=== PATIENT | female | born 1970 | race Caucasian/White ===

== ENCOUNTER 2019-05-02 21:52 | Emergency (ER) | payer BC, OTHER ==
[2019-05-02] MEDS ORDERED: Succinylcholine 200 MG/10 ML MDV IV ONE (21:53)
[2019-05-02] MEDS ORDERED: Propofol 200 MG/20 ML SDV IV ONE (21:53)
[2019-05-02] MEDS ORDERED: Sodium Chloride 0.9% 10 ML Syringe FLUSH PRN (22:12)
[2019-05-02] MEDS ORDERED: Morphine 2 MG/ML Syringe IVPUSH ONE (22:42)
[2019-05-02] MEDS ORDERED: Ondansetron 4 MG/2 ML SDV IVPUSH ONE (22:42)
[2019-05-02] MEDS ORDERED: Morphine 2 MG/ML Syringe IM ONE (22:44)
[2019-05-02] MEDS ORDERED: Ondansetron 8 MG Tab.DIS PO ONE (22:44)
[2019-05-02] MEDS ORDERED: Phytonadione 10 MG in Sodium Chloride 0.9% 50 ML IV ONE (23:20)
--- NOTE | 2019-05-02 23:39 | EDM.PDOC ---
ED HPI GENERAL MEDICAL PROBLEM - General Chief Complaint: Headache Stated Complaint: fall Time Seen by Provider: 05/02/19 21:55 Source of Information: Reports: Patient, Family History Limitations: Reports: No Limitations - History of Present Illness INITIAL COMMENTS - FREE TEXT/NARRATIVE: Patient presented o the ED because of headache,altered LOC and confusion. She had a brain tumor resection 6 days ago and was discharged to home today. She got out of the car and was feeling weak and dizzy and fell on her buttock. She didn't sustain and physical injury but c/o 8/10 headche,nausea,and according to her she was confused. Past Medical History Neurological History: Reports: Headaches, Chronic, Other (See Below) (Brain Ca post resection) Endocrine/Metabolic History: Reports: Diabetes, Type II ED ROS GENERAL - Review of Systems Review Of Systems: See Below Constitutional: Denies: Fever HEENT: Reports: No Symptoms Respiratory: Reports: No Symptoms Cardiovascular: Reports: No Symptoms Endocrine: Reports: No Symptoms GI/Abdominal: Reports: Nausea. Denies: Vomiting Musculoskeletal: Reports: No Symptoms, Neck Pain Skin: Reports: No Symptoms Neurological: Reports: Confusion, Headache Psychiatric: Reports: No Symptoms ED EXAM, GENERAL - Physical Exam Exam: See Below Exam Limited By: No Limitations General Appearance: Alert Eye Exam: Bilateral Eye: Other (rt pupil is dilated5-7 mm lrgt 2-3 mm) Nose: Normal Inspection, Normal Mucosa Throat/Mouth: Normal Inspection, Normal Lips Head: Atraumatic, Normocephalic Neck: Normal Inspection, Supple, Non-Tender Respiratory/Chest: No Respiratory Distress, Lungs Clear, Normal Breath Sounds Cardiovascular: Normal Peripheral Pulses, Regular Rate, Rhythm, No Edema, No Gallop GI/Abdominal: Normal Bowel Sounds, Soft, Non-Tender, No Organomegaly Back Exam: Normal Inspection, Full Range of Motion Extremities: Normal Inspection, Normal Range of Motion, Non-Tender Neurological: Other (decrese sensation left,left hemiaresis) Skin Exam: Warm Course - Vital Signs Text/Narrative:: lbs/ekg/head ct was discussed with patient her and verbalized full understanding vitamin k 10 mg IM ffp 2 u iv mannitol 1360 gm iv x1 keppra 500 mg ivx1 zofran 8 mg odt neurosurgery consult was done with Dr Linares at [facility] who agreed with the above plan patient will be transported by air and patient and her agreed - Orders/Labs/Meds Orders: Active Orders 24 hr Category Date Time Status EKG Documentation Completion [RC] ASDIRECTED Care 05/02/19 22:13 Active Chest 1V Frontal [CR] Stat Exams 05/02/19 22:12 Ordered Head wo Cont [CT] Stat Exams 05/02/19 22:14 Taken FRESH FROZEN PLASMA [BBK] Routine Lab 05/02/19 23:05 Received PATIENT RETYPE [BBK] Routine Lab 05/02/19 23:05 Results TYPE AND SCREEN [BBK] Routine Lab 05/02/19 23:05 Received UA W/MICROSCOPIC [URIN] Stat Lab 05/02/19 22:12 Ordered Mannitol [Mannitol 20%] Med 05/02/19 23:54 Ordered 136 gm in 680 ml IV ONETIME Sodium Chloride 0.9% [Saline Flush] Med 05/02/19 22:12 Active 10 ml FLUSH ASDIRECTED PRN levETIRAcetam [Keppra] 500 mg Med 05/02/19 23:44 Ordered Sodium Chloride 0.9% [Normal Saline] 100 ml IV ONETIME Saline Lock Insert [OM.PC] Routine Oth 05/02/19 22:12 Ordered EKG 12 Lead [EK] Routine Ther 05/02/19 22:12 Ordered Medication Orders Levetiracetam 500 mg/ Sodium (Chloride) 105 mls @ 400 mls/hr IV ONETIME ONE Stop: 05/02/19 23:58 Mannitol (Mannitol 20%) 136 gm in 680 mls @ 680 mls/hr 1 gm/kg (136 gm) IV ONETIME ONE Stop: 05/03/19 00:53 Sodium Chloride (Saline Flush) 10 ml FLUSH ASDIRECTED PRN PRN Reason: Keep Vein Open Labs: Laboratory Tests 05/02/19 05/02/19 05/02/19 Range/Units 23:05 23:05 23:05 WBC 25.3 H (4.5-12.0) X10-3/uL RBC 5.03 (3.23-5.20) x10(6)uL Hgb 15.0 (11.5-15.5) g/dL Hct 46.1 (30.0-51.3) % MCV 91.7 (80-96) fL MCH 29.8 (27.7-33.6) pg MCHC 32.5 (32.2-35.4) g/dL RDW 12.8 (11.5-15.5) % Plt Count 288 (125-369) X10(3)uL MPV 9.2 (7.4-10.4) fL Add Manual Diff Yes Neutrophils % (Manual) 87 H (46-82) % Lymphocytes % (Manual) 7 L (13-37) % Monocytes % (Manual) 6 (4-12) % PT 17.5 H (9.0-11.1) sec INR 1.81 H (1.00-1.24) Sodium 135 (135-145) mmol/L Potassium 3.8 (3.5-5.3) mmol/L Chloride 97 L (100-110) mmol/L Carbon Dioxide 25 (21-32) mmol/L BUN 28 H (7-18) mg/dL Creatinine 1.1 H (0.55-1.02) mg/dL Est Cr Clr Drug Dosing TNP Estimated GFR (MDRD) 53 L (>60) BUN/Creatinine Ratio 25.5 H (9-20) Glucose 310 H (80-116) mg/dL Calcium 8.9 (8.6-10.2) mg/dL Total Bilirubin 1.4 H (0.1-1.3) mg/dL AST 17 (5-25) IU/L ALT 27 (12-36) U/L Alkaline Phosphatase 89 (56-112) IU/L Total Protein 7.7 (6.0-8.0) g/dL Albumin 3.4 L (3.5-5.2) g/dL Globulin 4.3 g/dL Albumin/Globulin Ratio 0.8 Blood Type 05/02/19 Range/Units 23:05 WBC (4.5-12.0) X10-3/uL RBC (3.23-5.20) x10(6)uL Hgb (11.5-15.5) g/dL Hct (30.0-51.3) % MCV (80-96) fL MCH (27.7-33.6) pg MCHC (32.2-35.4) g/dL RDW (11.5-15.5) % Plt Count (125-369) X10(3)uL MPV (7.4-10.4) fL Add Manual Diff Neutrophils % (Manual) (46-82) % Lymphocytes % (Manual) (13-37) % Monocytes % (Manual) (4-12) % PT (9.0-11.1) sec INR (1.00-1.24) Sodium (135-145) mmol/L Potassium (3.5-5.3) mmol/L Chloride (100-110) mmol/L Carbon Dioxide (21-32) mmol/L BUN (7-18) mg/dL Creatinine (0.55-1.02) mg/dL Est Cr Clr Drug Dosing Estimated GFR (MDRD) (>60) BUN/Creatinine Ratio (9-20) Glucose (80-116) mg/dL Calcium (8.6-10.2) mg/dL Total Bilirubin (0.1-1.3) mg/dL AST (5-25) IU/L ALT (12-36) U/L Alkaline Phosphatase (56-112) IU/L Total Protein (6.0-8.0) g/dL Albumin (3.5-5.2) g/dL Globulin g/dL Albumin/Globulin Ratio Blood Type A POSITIVE Meds: Medications Generic Name Dose Route Start Last Admin Trade Name Freq PRN Reason Stop Dose Admin Levetiracetam 500 mg/ Sodium 105 mls @ 400 mls/hr 05/02/19 23:44 Chloride IV 05/02/19 23:58 ONETIME ONE Mannitol 136 gm in 680 mls @ 680 mls/hr 05/02/19 23:54 Mannitol 20% 1 gm/kg (136 gm) 05/03/19 00:53 IV ONETIME ONE Sodium Chloride 10 ml 05/02/19 22:12 Saline Flush FLUSH ASDIRECTED PRN Keep Vein Open Discontinued Medications Generic Name Dose Route Start Last Admin Trade Name Freq PRN Reason Stop Dose Admin Phytonadione 10 mg/ Sodium 51 mls @ 100 mls/hr 05/02/19 23:20 05/02/19 23:31 Chloride IV 05/02/19 23:50 Not Given NOW ONE Morphine Sulfate 2 mg 05/02/19 22:42 Morphine IVPUSH 05/02/19 22:43 ONETIME ONE Morphine Sulfate 4 mg 05/02/19 22:44 05/02/19 23:31 Morphine IM 05/02/19 22:45 Not Given ONETIME ONE Ondansetron HCl 4 mg 05/02/19 22:42 Zofran IVPUSH 05/02/19 22:43 ONETIME ONE Ondansetron HCl 8 mg 05/02/19 22:44 05/02/19 22:47 Zofran Odt PO 05/02/19 22:45 8 mg ONETIME ONE Administration Phytonadione 10 mg 05/02/19 23:25 05/02/19 23:32 Aquamephyton IM 05/02/19 23:26 10 mg ONETIME ONE Administration Departure - Departure Time of Disposition: 00:05 Disposition: DC/Tfer to Acute Hospital 02 Condition: Good Clinical Impression: Intracerebral hemorrhage - Discharge Information Referrals: Jarrod Arvizu MD [Primary Care Provider] - Forms: ED Department Discharge Sepsis Event Note - Focused Exam Date Exam was Performed: 05/02/19 Time Exam was Performed: 23:58 - My Orders Last 24 Hours: My Active Orders 05/02/19 22:12 Chest 1V Frontal [CR] Stat UA W/MICROSCOPIC [URIN] Stat Sodium Chloride 0.9% [Saline Flush] 10 ml FLUSH ASDIRECTED PRN Saline Lock Insert [OM.PC] Routine EKG 12 Lead [EK] Routine 05/02/19 22:13 EKG Documentation Completion [RC] ASDIRECTED 05/02/19 22:14 Head wo Cont [CT] Stat 05/02/19 23:05 FRESH FROZEN PLASMA [BBK] Routine PATIENT RETYPE [BBK] Routine TYPE AND SCREEN [BBK] Routine 05/02/19 23:44 levETIRAcetam [Keppra] 500 mg Sodium Chloride 0.9% [Normal Saline] 100 ml IV ONETIME 05/02/19 23:54 Mannitol [Mannitol 20%] 136 gm in 680 ml IV ONETIME - Assessment/Plan Last 24 Hours: My Active Orders 05/02/19 22:12 Chest 1V Frontal [CR] Stat UA W/MICROSCOPIC [URIN] Stat Sodium Chloride 0.9% [Saline Flush] 10 ml FLUSH ASDIRECTED PRN Saline Lock Insert [OM.PC] Routine EKG 12 Lead [EK] Routine 05/02/19 22:13 EKG Documentation Completion [RC] ASDIRECTED 05/02/19 22:14 Head wo Cont [CT] Stat 05/02/19 23:05 FRESH FROZEN PLASMA [BBK] Routine PATIENT RETYPE [BBK] Routine TYPE AND SCREEN [BBK] Routine 05/02/19 23:44 levETIRAcetam [Keppra] 500 mg Sodium Chloride 0.9% [Normal Saline] 100 ml IV ONETIME 05/02/19 23:54 Mannitol [Mannitol 20%] 136 gm in 680 ml IV ONETIME
[2019-05-02] MEDS ORDERED: levETIRAcetam 500 MG in Sodium Chloride 0.9% 100 ML IV ONE (23:44)
--- NOTE | 2019-05-02 23:49 | PCM.SN ---
- Free Text/Narrative Note: ANESTHESIA SERVICES: Date: 05/02/2019 Time: 2245 to 2300 Dx: Acute fall with head bleed, confusion and Poor Peripheral Venous Access. Rx: Placement of a Peripheral Venous Catheter Procedure: Placement of a Peripheral Venous Catheter I was called by the ED RN / physician to obtain a peripheral access site. A vein was located in the lateral ACF and I prepped the site with an alcohol wipe X 1. I then inserted and advanced a BD 20 Ga. X 1.1 In. Insyte Autoguard Catheter X 1 attempt. It advanced easily into the vein and I did draw blood off of it for labs. An Op-Site dressing was applied. The patient did not respond to the insertion of this catheter. Jarrod Ghotra CRNA, A
[2019-05-02] MEDS ORDERED: MANNITOL IV ONE (23:54)
--- NOTE | 2019-05-03 00:58 | PCM.SN ---
- Free Text/Narrative Note: ANESTHESIA SERVICES Date: 05/02/2019 Time: 2348 to 0021 Dx: Cranial Hemorrhage with Obtundation, Poor Venous Acces Rx: Intubation, Insertion of non-tunneled central venous catheter Procedures: Emergency Intubation, Insertion of non-tunneled central venous catheter Intubation [[id number]] - After preparing for the Intubation, I manually assisted her respirations with an Ambu-Bag at 100% O2 until her SpO2 was reading 100%. Under my direction, The TRACTOR SWEEPER OPERATOR gave 200 mg's of Propofol and 120 mg's of Succinylcholine IV. Using a #3 Glidescope, I then intubated her X 1 attempt visualizing the vocal cords. I inserted a #7.0 ETT to a depth of 22 cm to her lip. There was a positive return of EtCO2 and bilateral / equal breath sounds. The ETT was secured by the flight team. Her EtCO2 monitoring was 25 to 28. Insertion of non-tunneled central venous catheter [[id number]] - There was a need for more venous access and it was very hard to find a peripheral venous site. I then found her left External Jugular Vein and prepped the area with alcohol wipes X 3. I then inserted and advanced a BD Insyte Autoguard BC 20 Ga X 1.1 In. catheter X 1 attempt. I advanced it into the jugular easily with a great blood return. An Op-Site dressing was applied. She tolerated both procedures well The flight team is here and assumed ventilatory care. Jarrod Ghotra CRNA, A
== END 2019-05-03 00:50 ==
LOC: FB.ED 21:52
DX: I61.9 Nontraumatic intracerebral hemorrhage, unspecified (principal)
CPT/HCPCS: 36415; 36430; 70450; 71045; 80053; 85025; 85610; 86850; 86900; 86901; 93005; 96365; 96372; 96375; 99285; A9270; J0330; J1953; J2704; J3430; J7050; P9017